=== PATIENT | female | born 1995 | race Caucasian/White ===

== ENCOUNTER 2017-08-01 17:34 | Inpatient (IN) | payer OTHER ==
[~2017-08-01] VITALS: Ht 167.6 cm; Wt 105.4 kg
[~2017-08-01 17:34] MED LIST: PRENAT PO
[2017-08-01 17:40] VITALS: BP 138/66; PULSE 88; RESP 18; Ht 167.6 cm; Wt 105.4 kg
--- NOTE | 2017-08-01 18:14 | RADRPT ---
PROCEDURE: US OB biophysical profile. CLINICAL INDICATION: decreased movements, rupture membranes TECHNIQUE: Multiple sonographic images of the pelvis were obtained. The images were reviewed on a PACS workstation. COMPARISON: No prior studies are available for comparison. FINDINGS: There is a single viable intrauterine gestation. Cardiac activity is present with 142 beats per min lisset. There is a vertex presentation. The placenta is anterior. There is no evidence of placental abruption. There is a normal amount of amniotic fluid with an ARMEN = 10 cm. Biophysical profile: movement 2/2 tone 2/2. breathing 2/2 ARMEN 2/2 Total 07/05 RPTAT: AA . IMPRESSION: Normal biophysical profile. . .Arnold Mcmanus MD, MD Date Time Electronically viewed and signed by .Arnold Mcmanus MD, MD on 08/01/2017 18:14 .S/
--- NOTE | 2017-08-01 19:54 | HP ---
Date/Time of Note Date/Time of Note DATE: 08/01/17 TIME: 19:48 OB - History Hx of Present Free Text/Dictation Patient is 6 para 5 at 38 weeks and 2 days of gestation She presents with spontaneous rupture membranes : 6 Para: 5 Care: Good Care Abnormal Ultrasound Findings: PROCEDURE: US OB biophysical profile. CLINICAL INDICATION: decreased movements, rupture membranes TECHNIQUE: Multiple sonographic images of the pelvis were obtained. The images were reviewed on a PACS workstation. COMPARISON: No prior studies are available for comparison. FINDINGS: There is a single viable intrauterine gestation. Cardiac activity is present with 142 beats per minute. There is a vertex presentation. The placenta is anterior. There is no evidence of placental abruption. There is a normal amount of amniotic fluid with an ARMEN = 10 cm. Biophysical profile: movement 2/2 tone 2/2. breathing 2/2 ARMEN 2/2 Total 07/05 RPTAT: AA . IMPRESSION: Normal biophysical profile. . .Arnold Mcmanus MD, Date Time Electronically viewed and signed by .Arnold Mcmanus MD, on 08/01/2017 18: 14 .S/ CC: SUYAPA KAUR MD Obstetrical Complications: None Medical Complications: None Past Family/Social History * Past Medical, Surgical, Family and Obstetric Histories reviewed from chart. OB Admission Exam Vital Signs Vital Signs Vital Signs Date Time Temp Pulse Resp B/P Pulse Ox O2 Delivery O2 Flow Rate FiO2 08/01/17 17:40 98.2 88 18 138/66 Room Air Physical Exam HEENT: WNL Heart: Rhythm Normal Lungs: Clear, Equal Abdomen: WNL Extremities: Normal Reflexes: Normal Membranes: Ruptured Amniotic Fluid: Clear Heart Rate: 140's Accelerations: Accelerations Present Decelerations: No Decelerations Last 72 hours Lab Results ROM positive OB Assessment/Plan Reason for admission: group B positive strep, rupture of membranes Other Assessment: Spontaneous rupture membranes at term Induction Method: per Pitocin Protocol Other plan: Antibiotics for GBS prophylaxis Pain meds as indicated Anticipate normal spontaneous delivery GENNARO SHAIKH MD Aug 01, 2017 19:54
[2017-08-01] MEDS: LACTATED RINGER'S 1,000 ML IV SCH (20:24)
[2017-08-01] MEDS ORDERED: IBUPROFEN 600 MG TAB PO PRN (20:30)
[2017-08-01] MEDS ORDERED: AMPICILLIN 2 GM/NS (PMX) 100 ML IV ONE (20:30)
[2017-08-01] MEDS ORDERED: CARBOPROST 250 MCG INJ IM PRN (20:30)
[2017-08-01] MEDS ORDERED: BUTORPHANOL 2 MG INJ IV PRN (20:30)
[2017-08-01] MEDS ORDERED: METHYLERGONOVINE 0.2 MG INJ IM PRN (20:30)
[2017-08-01] MEDS ORDERED: MISOPROSTOL 200 MCG TAB PR PRN (20:30)
[2017-08-01] MEDS ORDERED: OXYTOCIN 30 UNITS/LR 500 ML IV PRN (20:30)
[2017-08-01] MEDS ORDERED: OXYTOCIN 30 UNITS/LR 500 ML IV SCH ×3 (20:30)
[2017-08-01] MEDS ORDERED: LIDOCAINE 1% (MPF) 30 ML INJ INJ PRN (20:30)
[2017-08-01 20:45] LABS: BASOPHILS % 0.3 % (0.0-2.0); EOSINOPHILS # 0.1 10^3/ul (0.0-0.5); EOSINOPHILS % 0.7 % (0.0-7.0); HEMATOCRIT 35.8 % (37.0-47.0); LYMPHOCYTES # 1.9 10^3/ul (0.8-2.9); LYMPHOCYTES % 21.1 % (15.0-51.0); MEAN CORPUSCULAR HEMOGLOBIN 28.8 pg (29.0-33.0); MEAN CORPUSCULAR HGB CONC 33.5 g/dl (32.0-37.0); MEAN CORPUSCULAR VOLUME 85.9 fl (82.0-101.0); MEAN PLATELET VOLUME 12.2 fl (7.4-10.4); MONOCYTE # 0.6 10^3/ul (0.3-0.9); NEUTROPHILS % 69.8 % (39.0-77.0); PLATELET COUNT 158 10^3/UL (140-415); RED BLOOD COUNT 4.17 10^6/ul (4.20-5.40); RED CELL DISTRIBUTION WIDTH 14.2 % (11.5-14.5)
[2017-08-01] MEDS ORDERED: LACTATED RINGER'S 1,000 ML IV PRN (21:00)
[2017-08-01 21:04] LABS: INR 0.89; PT RATIO 0.9
[2017-08-01 21:05] LABS: PARTIAL THROMBOPLASTIN TIME 28.4 Sec (25.0-35.0)
[2017-08-02] MEDS: AMPICILLIN 1 GM/NS (PMX) 50 ML IV SCH ×3 (00:36→08:53)
[2017-08-02] MEDS: LACTATED RINGER'S 1,000 ML IV SCH ×2 (04:28→08:19)
[2017-08-02] MEDS ORDERED: ONDANSETRON 4 MG INJ ONE (07:57)
[2017-08-02] MEDS ORDERED: CITRIC ACID/NA CITRATE 30 ML CUP ONE (07:57)
[2017-08-02] MEDS ORDERED: LACTATED RINGER'S 1,000 ML IV ONE (08:10)
[2017-08-02] MEDS ORDERED: FENTAnyl 2MCG/ML-ROPIV 0.2% 100 ML ONE (08:13)
[2017-08-02] MEDS ORDERED: ONDANSETRON 4 MG INJ IV ONE (08:30)
[2017-08-02] MEDS ORDERED: NALOXONE (0.4 MG/ML) INJ IV PRN (08:30)
[2017-08-02] MEDS ORDERED: KETOROLAC 30 MG INJ IV PRN (08:30)
[2017-08-02] MEDS ORDERED: DIPHENHYDRAMINE 50 MG INJ IV PRN (08:30)
[2017-08-02] MEDS ORDERED: NALBUPHINE HCL (10 MG/1 ML) INJ IV PRN (08:30)
[2017-08-02] MEDS ORDERED: morphine 2 MG INJ IV PRN (08:30)
[2017-08-02] MEDS ORDERED: FENTAnyl 2MCG/ML-ROPIV 0.2% 100 ML BAG EPI SCH (08:30)
[2017-08-02] MEDS ORDERED: TRIMETHOBENZAMIDE 100 MG/ML VIAL IM PRN (08:30)
[2017-08-02] MEDS ORDERED: ONDANSETRON 4 MG INJ IV PRN ×2 (08:30→16:30)
[2017-08-02] MEDS ORDERED: CITRIC ACID/NA CITRATE 30 ML CUP PO ONE (08:30)
[2017-08-02] MEDS ORDERED: morphine 4 MG/ML VIAL IV PRN (08:30)
--- NOTE | 2017-08-02 12:51 | LDN ---
Date/Time of Note Date/Time of Note DATE: 08/02/17 TIME: 12:47 Delivery Summary Normal spontaneous vaginal delivery baby girl from OA position shoulders delivered without any difficulty rest of the baby's body followed cord clamped after stopped pulsing placenta spontaneous expulsion inspected complete patient sustained no laceration. Blood loss 200 cc Weeks of Gestation 38 weeks 2 days Placenta Delivered: Spontaneously Meconium: none Episiotomy: No Laceration repair: No laceration Anesthesia type: Epidural Estimated blood loss: 200 Sponge & Needle done & correct: Yes All needle counts correct: Yes Any foreign bodies felt in the: No Problems: Infant Delivery Information Sex Sex: female Apgars 1 Minute: 9 5 Minute: 9 Suctioning Nose & mouth suctioned at [place]: Yes Delee suction performed: No Umbilical Cord Umbilical cord with: 3 Vessels Cord presentations: nuchal cord KIKI COOPER MD Aug 02, 2017 12:51
[2017-08-02 15:20] VITALS: BP 113/53; PULSE 64; RESP 18
[2017-08-02 16:00] VITALS: BP 121/56; PULSE 71; RESP 18
[2017-08-02] MEDS ORDERED: WITCH HAZEL/GLYCERIN PAD PR PRN (16:30)
[2017-08-02] MEDS ORDERED: LANOLIN 7 GM TUBE TOP PRN (16:30)
[2017-08-02] MEDS ORDERED: HYDROCODONE/APAP (5/325) TAB PO PRN ×2 (16:30)
[2017-08-02] MEDS ORDERED: ACETAMINOPHEN 325 MG TAB PO PRN (16:30)
[2017-08-02] MEDS ORDERED: BENZOCAINE 20% 56 ML SPRAY TOP PRN (16:30)
[2017-08-02] MEDS ORDERED: DIBUCAINE 1% 30 GM OINT PR PRN (16:30)
[2017-08-02] MEDS ORDERED: OXYCODONE/ASPIRIN (4.88/325) TAB PO PRN ×2 (16:30)
[2017-08-02] MEDS: OXYTOCIN 30 UNITS/LR 500 ML IV SCH ×2 (16:47→20:47)
[2017-08-02] MEDS: IBUPROFEN 600 MG TAB PO SCH ×2 (17:10→23:46)
[2017-08-02 19:45] VITALS: BP 122/57; PULSE 73; RESP 18
[2017-08-02 23:46] VITALS: BP 122/58; PULSE 74; RESP 17
[2017-08-03 04:10] VITALS: BP 106/59; PULSE 75
[2017-08-03] MEDS: IBUPROFEN 600 MG TAB PO SCH ×4 (05:35→23:32)
[2017-08-03 07:30] VITALS: BP 112/60; PULSE 71; RESP 19
[2017-08-03] MEDS: SENNA/DOCUSATE NA (8.6MG/50MG) TAB PO SCH ×2 (08:58→20:33)
[2017-08-03 10:27] LABS: BASOPHILS % 0.2 % (0.0-2.0); EOSINOPHILS # 0.1 10^3/ul (0.0-0.5); EOSINOPHILS % 0.8 % (0.0-7.0); HEMATOCRIT 32.6 % (37.0-47.0); HEMOGLOBIN 10.6 g/dl (12.0-16.0); LYMPHOCYTES # 1.7 10^3/ul (0.8-2.9); LYMPHOCYTES % 18.3 % (15.0-51.0); MEAN CORPUSCULAR HEMOGLOBIN 28.3 pg (29.0-33.0); MEAN CORPUSCULAR HGB CONC 32.5 g/dl (32.0-37.0); MEAN CORPUSCULAR VOLUME 86.9 fl (82.0-101.0); MEAN PLATELET VOLUME 12.7 fl (7.4-10.4); MONOCYTE # 0.7 10^3/ul (0.3-0.9); MONOCYTES % 7.9 % (0.0-11.0); NEUTROPHILS % 71.6 % (39.0-77.0); PLATELET COUNT 150 10^3/UL (140-415); RED BLOOD COUNT 3.75 10^6/ul (4.20-5.40); RED CELL DISTRIBUTION WIDTH 14.4 % (11.5-14.5); WHITE BLOOD COUNT 9.1 10^3/ul (4.8-10.8)
--- NOTE | 2017-08-03 10:30 | PN ---
Date/Time of Note Date/Time of Note DATE: 08/03/17 TIME: 10:29 OB Subjective Subjective Subjective Post normal vaginal delivery day 1 Afebrile vital signs are stable abdomen soft uterus firm lochia normal extremity normal KIKI COOPER MD Aug 03, 2017 10:30
[2017-08-03 15:43] VITALS: BP 105/57; PULSE 76; RESP 19
[2017-08-03 20:00] VITALS: BP 107/66; PULSE 75; RESP 18
[2017-08-04 04:00] VITALS: BP 112/61; PULSE 65; RESP 18
[2017-08-04] MEDS: IBUPROFEN 600 MG TAB PO SCH ×2 (06:13→12:49)
[2017-08-04 08:00] VITALS: BP 113/78; PULSE 78; RESP 18
[2017-08-04] MEDS ORDERED: MEASLES,MUMPS,RUBELLA VACCINE INJ SC* ONE (09:00)
[2017-08-04] MEDS: SENNA/DOCUSATE NA (8.6MG/50MG) TAB PO SCH (09:00)
--- NOTE | 2017-08-04 10:20 | DS ---
Date/Time of Note Date/Time of Note DATE: 08/04/17 TIME: 10:18 Obstetrical Discharge Record Final Diagnosis Final Diagnosis: Term delivered Vaginal Delivery Obstetrical Delivery: Spontaneous Complications Augmentation: No Induction: No Rupture of Membranes: No Gestational Age at Rupture Post day 2 Doing Well Afebrile Ambulatory Chest Clear Breasts are soft , Nipples are intact Abdomen is soft Fundus is firm Moderate amount of lochia No calf tenderness No ankle edema Current Medications Medications (Trade) Dose Ordered Sig/Zay Route PRN Reason Start Time Stop Time Status Last Admin Dose Admin Lactated Ringer's 1,000 ml @ 125 mls/hr Q8H IV 08/01/17 20:02 08/02/17 16:26 DC 08/02/17 08:19 Ampicillin 100 ml @ 100 mls/hr ONCE ONCE IV 08/01/17 20:30 08/01/17 21:29 DC 08/01/17 20:28 Ampicillin 50 ml @ 100 mls/hr Q4H IV 08/02/17 00:30 08/02/17 16:26 DC 08/02/17 08:53 Oxytocin/Lactated Ringer's 500 ml @ 0 mls/hr TITRATE IV 08/01/17 20:30 08/02/17 16:26 DC 08/01/17 21:19 Butorphanol Tartrate (Stadol) 2 mg Q2H PRN IV PAIN 08/01/17 20:30 08/02/17 16:26 DC Lidocaine 30 ml 30 ml ONCE PRN INJ EPISIOTOMY/TEARING 08/01/17 20:30 08/02/17 16:26 DC Oxytocin/Lactated Ringer's 500 ml @ 125 mls/hr ONCE -MAY REPEAT X1 IV 08/01/17 20:30 08/02/17 16:26 DC 08/02/17 13:03 Oxytocin/Lactated Ringer's 500 ml @ 125 mls/hr ONCE IV 08/01/17 20:30 08/02/17 16:26 DC 08/02/17 14:38 Ibuprofen 600 mg 600 mg ONCE PRN PO Mild Pain (Pain Score 1-3) 08/01/17 20:30 08/02/17 16:26 DC Lactated Ringer's 1,000 ml @ 2,000 mls/hr Q30M PRN IV PRE-EPIDURAL BOLUS 08/01/17 21:00 08/02/17 16:26 DC Oxytocin/Lactated Ringer's 500 ml @ 0 mls/hr ONCE PRN IV For Hemorrhage Management 08/01/17 20:30 08/02/17 16:26 DC Methylergonovine Maleate (Methergine) 0.2 mg ONCE PRN IM VAGINAL BLEEDING 08/01/17 20:30 08/02/17 16:26 DC 08/02/17 14:10 Carboprost Tromethamine (Hemabate) 250 mcg ONCE PRN IM VAGINAL BLEEDING 08/01/17 20:30 08/02/17 16:26 DC Misoprostol (Cytotec) 1,000 mcg ONCE PRN [place] VAGINAL BLEEDING 08/01/17 20:30 08/02/17 16:26 DC Ondansetron HCl (Zofran Inj) 4 mg STK-MED ONCE .ROUTE 08/02/17 07:57 08/02/17 07:58 DC Citric Acid/ Sodium Citrate 30 ml 30 ml STK-MED ONCE .ROUTE 08/02/17 07:57 08/02/17 07:58 DC Lactated Ringer's (Lr) 1,000 ml @ 1,000 mls/hr Q1H ONCE IV 08/02/17 08:10 08/02/17 09:09 DC 08/02/17 11:50 Ondansetron HCl (Zofran Inj) 4 mg pre-procedure ONCE IV 08/02/17 08:30 08/02/17 08:31 DC 08/02/17 08:19 Citric Acid/ Sodium Citrate (Bicitra) 30 ml PRE-OP ONCE PO 08/02/17 08:30 08/02/17 08:31 DC 08/02/17 08:20 Naloxone HCl (Narcan) 0.1 mg Q2M PRN IV FOR RESP RATE 8 OR LESS 08/02/17 08:30 08/02/17 16:26 DC Ketorolac Tromethamine (Toradol) 30 mg Q6H PRN IV PAIN 08/02/17 08:30 08/02/17 16:26 DC Morphine Sulfate (morphine) 2 mg Q3H PRN IV PAIN LEVEL 1-5 08/02/17 08:30 08/02/17 16:26 DC Morphine Sulfate (morphine) 4 mg Q3H PRN IV PAIN LEVEL 6-10 08/02/17 08:30 08/02/17 16:26 DC Diphenhydramine HCl (Benadryl) 25 mg Q6H PRN IV ITCHING 08/02/17 08:30 08/02/17 16:26 DC Nalbuphine HCl (Nubain) 5 mg ONCE PRN IV ITCHING 08/02/17 08:30 08/02/17 16:26 DC Ondansetron HCl (Zofran Inj) 4 mg Q6H PRN IV NAUSEA AND/OR VOMITING 08/02/17 08:30 08/02/17 16:26 DC Trimethobenzamide HCl (Tigan) 200 mg Q6H PRN IM NAUSEA AND/OR VOMITING 08/02/17 08:30 08/02/17 16:26 DC Fentanyl/ Ropivacaine 100 ml 100 ml EPIDURAL INFUSION EPI 08/02/17 08:30 08/02/17 16:26 DC Fentanyl/ Ropivacaine 100 ml @ ud STK-MED ONCE .ROUTE 08/02/17 08:13 08/02/17 08:14 DC Oxytocin/Lactated Ringer's 500 ml @ 125 mls/hr Q4H IV 08/02/17 16:22 08/03/17 00:21 DC 08/02/17 20:47 Ibuprofen (Motrin) 600 mg Q6 PO 08/02/17 18:00 08/04/17 06:13 Acetaminophen (Tylenol Tab) 650 mg Q4H PRN PO PAIN LEVEL 1-5 08/02/17 16:30 08/04/17 01:48 Acetaminophen/ Hydrocodone Bitart ([place] (5/325)) 1 tab Q4H PRN PO PAIN LEVEL 1-5 08/02/17 16:30 Acetaminophen/ Hydrocodone Bitart ([place] (5/325)) 2 tab Q4H PRN PO PAIN LEVEL 6-10 08/02/17 16:30 Oxycodone/Aspirin (Percodan) 1 tab Q3H PRN PO PAIN LEVEL 1-5 08/02/17 16:30 Oxycodone/Aspirin (Percodan) 2 tab Q3H PRN PO PAIN LEVEL 6-10 08/02/17 16:30 Ondansetron HCl (Zofran Inj) 4 mg Q6H PRN IV NAUSEA AND/OR VOMITING 08/02/17 16:30 Senna/Docusate Sodium (Senokot-S) 1 tab BID PO 08/03/17 09:00 08/03/17 20:33 Witch Tamia/ Glycerin (Tucks Pads) 1 pad BEDSIDE MEDICATION PRN NH HEMORRHOID/EPISIOTMY PAIN 08/02/17 16:30 08/02/17 16:42 Benzocaine (Dermoplast [place]) 1 spray BEDSIDE MEDICATION PRN TOP HEMORRHOID/EPISIOTMY PAIN 08/02/17 16:30 08/02/17 16:42 Dibucaine (Nupercainal) 1 applic BEDSIDE MEDICATION PRN NH HEMORRHOID/EPISIOTMY PAIN 08/02/17 16:30 Lanolin (Zas-L-Bgroav) 1 applic BEDSIDE MEDICATION PRN TOP BEDSIDE FOR GLEN TO NIPPLES 08/02/17 16:30 08/02/17 16:59 Measles/Mumps/ Rubella Vaccine Live (Mmr Ii Vaccine) 0.5 ml ONCE ONCE SC* 08/04/17 09:00 08/04/17 09:01 DC New born is doing well, Breast feeding Condition on Discharge Physical Assessment Voiding: Yes Bowel Movement: Yes Breast: Soft, non-tender Fundus: Firm Calf Tenderness: No Patient Condition: Good MARYBEL EUCEDA MD Aug 04, 2017 10:20
== END 2017-08-04 15:30 | disposition home or self-care (01) | DRG 775 ==
LOC: OBT 17:34 → L-D 17:34 → OBT 19:35 → L-D 19:35 → PP1 08-02 15:15
PROVIDERS: ADMIT Obstetrics & Gynecology; ATTEND Obstetrics & Gynecology
PROC: 10E0XZZ Delivery of Products of Conception, External Approach (ICD-10-PCS; principal; 2017-08-02)
PROC: 3E033VJ Introduction of Other Hormone into Peripheral Vein, Percutaneous Approach (ICD-10-PCS; 2017-08-02)
DX: O99.214 Obesity complicating childbirth (principal); Z37.0 Single live birth; Z3A.38 38 weeks gestation of pregnancy
CPT/HCPCS: 62319; 76818; 84112; 85025; 85610; 85730; 86592; 86900; 86901; 87340; 99464; G0463; J0290; J2210; J2405; J2590; J3010; J7120